=== PATIENT | male | born 1960 | race Caucasian/White ===

== ENCOUNTER → 2018-02-28 | Outpatient (CLI) | payer BC ==
[~2018-02-28] MED LIST: CIPROFLOXACIN500 M1 PO; IBUPROFEN 400400 M1 PO; LEVOTHYROXINE PO; LORTAB 5 MG/5001 TAB PO; NAPROSYN500 MG PO; NOHOMEMEDICATIONS; NORCO 5-325 TA1 EACH PO
== END ==
LOC: M.RAD 15:53
DX: M51.34 Other intervertebral disc degeneration, thoracic region (principal); M51.35 Other intervertebral disc degeneration, thoracolumbar region; M54.41 Lumbago with sciatica, right side; M54.42 Lumbago with sciatica, left side

== ENCOUNTER → 2018-03-14 | Outpatient (CLI) | payer OTHER | LOC: M.MRI 03-07 10:33 | DX: M51.34 Other intervertebral disc degeneration, thoracic region (principal) ==

== ENCOUNTER → 2018-04-07 | Outpatient (CLI) | payer OTHER | LOC: M.ULTRA 15:49 | DX: N28.1 Cyst of kidney, acquired (principal); N40.0 Benign prostatic hyperplasia without lower urinary tract symptoms; N28.9 Disorder of kidney and ureter, unspecified ==

== ENCOUNTER → 2019-03-12 | Outpatient (CLI) | payer BC | LOC: M.ULTRA 14:30 | DX: E04.1 Nontoxic single thyroid nodule (principal); E03.9 Hypothyroidism, unspecified ==

== ENCOUNTER → 2019-03-28 | Outpatient (CLI) | payer BC ==
--- NOTE | 2019-04-18 10:07 | PATH ---
[address] [address] PATHOLOGY RPT PROCEDURE Name: AUGUSTINE ROBERSON Room: [facility]#: [id number] Admission: 03/28/19 Date of : 58 Discharge: Report #: [id number] Path Case #: [id number] Note [facility] Accession Number: [id number] TESTS RESULT FLAG UNITS REF RANGE LAB Source: [A] 01 RT THYROID DIAGNOSIS: [A] 02 RT THYROID, IMAGE-GUIDED FINE NEEDLE ASPIRATION [place] CATEGORY III, ATYPIA OF UNDETERMINED SIGNIFICANCE FOLLICULAR CELLS WITH CYTOLOGIC/NUCLEAR ABNORMALITIES WITH SCANT COLLOID PRESENT. THIS INTERPRETATION INCLUDES EVALUATION OF A CELL BLOCK. (SEE COMMENT) (JENNIFER:mml; 03/29/2019) COMMENT: Specimen will be submitted for retain RNA molecular studies and will be the subject of a separate report. (JENNIFER:mml; 03/29/2019) Pathologist ICD10: 02 R89.6 Addendum: 02 Special studies report received from [facility], [address] [place] [address], on case [id number], labeled with their number [id number], dated 04/16/2019. . RESULTS SUMMARY Nodule Cytopathology ThyGeNEXT ThyraMIR Right Thyroid FNA AUS/FLUS (B-III) No mutations Negative Detected . INTERPRETATION AND RISK ASSESSMENT Right Thyroid FNA Cytology Dx B-III ThyGeNEXT No Mutations Detected ThyraMIR Negative 5% Risk of Malignancy . *Risk assessment is based on disease prevalence of associated cytology diagnosis, mutational changes, microRNA expression, clinical experience, submitted manuscript and associated rocket engine component mechanic/platform presentation "The Utility of Combined Mutations and microRNA Expression Profiling in Assessing Cancer Risk in Thyroid Nodules", [employer] Annual Meeting, February 2017 in addition to clinical validation(1)(See Test Result Interpretation section) . TEST RESULT INTERPRETATION Right Thyroid FNA . [place]odule [place] [address] PATHOLOGY RPT PROCEDURE Name: AUGUSTINE ROBERSON Room: [facility]#: [id number] Admission: 03/28/19 Date of : 58 Discharge: Report #: [id number] Path Case #: [id number] . Thyroid nodules showing [place] Diagnostic Category III (AUS/FLUS) or [place] Diagnostic Category IV (FN/SFN) with negative ThyGeNEXT and negative ThyraMIR status are highly likely to be benign (91-97% likelihood of being benign) (1,2). Given the likelihood for benign disease, continued surveillance can be a suitable management approach. . Because thyroid nodular disease can contain multifocal areas of heterogeneous pathology, sampling variation may occasionally result in under diagnosis of existing pathology. All decision factors, including ultrasound results, nodule size, and patient history need to be taken into account when determining treatment. . 1. E. Labourier et al, Molecular testing of Mitzy, mRNA and DNA on fine needle aspiration improves the preoperative diagnosis of thyroid nodules with indeterminate cytology, Journal of Clinical Endocrinology and Metabolism, 100(4), November 2014, [id number] 2. Jacqui Dye and Karie Bains, The utility of combined mutation analysis and microRNA classification in reclassifying cancer risk of cytologically indeterminate thyroid nodules, Diagnostic Cytopathology. 2018:1-7 . . REGULATORY The ThyGeNEXT Thyroid Oncogene Panel provides PCR-based enrichment from fine-needle aspiration biopsies of thyroid nodules and next-generation sequencing (NGS) DNA and RNA analysis. The DNA analysis interrogates 10 genes relevant to thyroid carcinoma, including BRAF, TERT, ALK, RET, PTEN, HRAS, KRAS, NRAS, GNAS, PIK3CA, and 38 RNA fusion transcripts including PAX8/PPARgamma, RET/PTC, and various fusion partners of ALK, RET, BRAF, NTRK, and THADA. Duplicate PCR enrichment was performed using custom oligonucleotide primers with analysis on a MiSeq platform ([employer]). The analytical sensitivity of this assay is at least 3% for mutant DNA and at least 5% of RNA translocations in a background of wild-type genomic DNA and RNA, respectively. The reporting range is at least 5% for DNA variants, with the exception that the reporting range for BRAF V600E mutation is at least 3%. For the ThyGeNEXT panel, the overall, clinical sensitivity for this analysis is 63% and the specificity is 84% in cases with indeterminant cytology. . The ThyraMIR Mitzy Building Custodian is a microRNA (Mitzy) based discriminator of benign versus malignant disease using mathematical algorithm of 10 specific microRNAs trained and validated using thyroid nodules with known outcome. For the needle aspirates in preservative solution, this assay requires a minimum of RNA equivalent to that for ThyGenX (1000 relative fluorescent units of housekeeping RNA genes). Discrimination can be affected by admixture with blood and normal RNA sources and has been shown to be operative within the range of admixture typically encountered in sampling of thyroid nodule disease. The combined testing platform of ThyGenX with ThyraMIR has a clinical sensitivity of 89% [place] [address] PATHOLOGY RPT PROCEDURE Name: AUGUSTINE ROBERSON Room: [facility]#: [id number] Admission: 03/28/19 Date of : 58 Discharge: Report #: [id number] Path Case #: [id number] 85% for cases with indeterminate cytology diagnosis. (The Journal of Clinical Endocrinology and Metabolism, Volume 100, Issue 7, 27 November 2014, Pages 7554-4239) Laboratory analytical validation of ThyGeNEXT confirmed 100% agreement (95% CI: 99.5 to 100%) for the 5 genes (BRAF, HRAS, KRAS, NRAS, PIK3CA) and 6 fusions (PAX8-PPARG and RET-PTC) interrogated by ThyGenX. Based on this comparison, the performance of ThyGeNEXT is expected to be similar to ThyGenX; however, ThyGeNEXT will provide additional information on gene alterations strongly associated with aggressive forms of differentiated thyroid cancer and/or poor outcome. . Testing performed on material created for microscopic evaluation (cytology slide smears, cell block, or thin prep), depending on cellularity and extractable nuclei acid, may have similar or slightly lower test performance characteristics to that stated above. . . DISCLAIMER: This test was developed and its performance characteristics determined by [facility]. It has not been cleared or approved by the FDA. The laboratory is regulated under CLI as qualified to perform high-complexity testing and is used for clinical purposes. A negative result does not indicate a benign result. This test detects only the mutations listed above, which account for >80% of thyroid cancers. Other, rare mutations, that may be indicative of cancer may not be detected by this test. In addition, about 30% of thyroid cancers have no known genetic alterations and/or mutations. . Interpreted By Electronically verified by Khushboo Canales MD Pathologist Date: 08:47:55 EST . A complete copy of the report is on file. . Professional and Technical services performed by [facility], [address] [place] [address]. . (JENNIFER:amj 04/16/2019) . AZJ/04/16/2019 Addendum Electronically Signed by Pb Parker MD, Pathologist Signed out by: Pb Parker MD, Pathologist NPI- [id number] Performed by: Beba Cesar, Tieing Machine Operator (ASC) Gross description: 01 16ML, RED, CLOUDY /LCS 05/29/1840 [address] [place] [address] PATHOLOGY RPT PROCEDURE Name: AUGUSTINE ROBERSON Room: [facility]#: [id number] Admission: 03/28/19 Date of : 58 Discharge: Report #: [id number] Path Case #: [id number] FLAG LEGEND: L-Low Normal,H-High Normal,LL-Alert Low,HH-Alert High <-Panic Low,>-Panic High,A-Abnormal,AA-Critical Abnormal Performed at: [address] [place] [address] Josh Chambers MD, [address] [place] [address] [place] [address] Pb Parker MD, Performed at: [address], [place], [place] [address] MD Josh Chambers MD Phone: [phone]
== END | disposition home or self-care (01) ==
LOC: M.ULTRA 08:08
DX: E04.1 Nontoxic single thyroid nodule (principal); R89.6 Abnormal cytological findings in specimens from other organs, systems and tissues; Z98.890 Other specified postprocedural states; Z79.899 Other long term (current) drug therapy

== ENCOUNTER 2019-10-22 17:35 | Emergency (ER) | payer BC ==
[~2019-10-22] VITALS: Ht 188 cm; Wt 111.1 kg
[2019-10-22] MEDS ORDERED: EUTHYROX150 MCG PO (17:46)
[2019-10-22 18:02] LABS: URINE BILIRUBIN NEGATIVE (Negative); URINE BLOOD 2+ (Negative); URINE COLOR YELLOW; URINE GLUCOSE-RANDOM NEGATIVE (Negative); URINE KETONES NEGATIVE (Negative); URINE PROTEIN TRACE (Negative)
[2019-10-22 18:04] LABS: URINE CLARITY SL HAZY; URINE LEUKOCYTES-REFLEX 3+ (Negative); URINE NITRITE-REFLEX POSITIVE (Negative)
[2019-10-22 18:14] LABS: MUCUS None Seen strn/LPF (None Seen); SQUAMOUS 0-3 Few /LPF (0-3)
[2019-10-22 18:16] LABS: BACTERIA-REFLEX >30 Many /HPF (None Seen)
[2019-10-22 18:18] LABS: HEMATOCRIT 44.6 % (42.0-52.0); MCH 30.3 pg (26.0-34.0); MCHC 33.7 g/dL (28.0-37.0); MCV 89.8 fL (80.0-100.0); MPV 9.3 fl. (7.2-11.1); NUCLEATED RBCS 0 /100WBC; PLATELET COUNT* 172 thou/uL (150-400); RBC 4.97 mil/uL (4.50-6.00); RDW-CV 13.1 % (10.5-14.5); WBC 15.1 thou/uL (4.0-11.0)
[2019-10-22 18:19] LABS: CASTS None Seen /LPF (None Seen); CRYSTALS None Seen /LPF (None Seen); TRANSITIONAL EPITHEL CELL 0-3 Few /LPF (None Seen)
[2019-10-22 18:20] LABS: URINE RBC 3-10 Few /HPF (0-2)
[2019-10-22 18:29] LABS: CALCIUM 8.8 mg/dL (8.5-10.1); POTASSIUM 3.7 mmol/L (3.5-5.1)
[2019-10-22 18:34] LABS: ALBUMIN 3.1 g/dL (3.4-5.0); TOTAL BILIRUBIN 1.2 mg/dL (<0.1-1.0); TOTAL PROTEIN 7.6 g/dL (6.4-8.2)
[2019-10-22 18:54] LABS: ABSOLUTE LYMPHOCYTES 0.5 thou/uL (0.8-5.3); ABSOLUTE MONOCYTES 1.1 thou/uL (0.0-1.2); ABSOLUTE NEUTROPHILS 13.6 thou/uL (1.6-8.1)
[2019-10-22 18:55] LABS: PLATELET ESTIMATE ADEQUATE
[2019-10-22] MEDS ORDERED: PHENAZOPYRIDIN200 M2 PO (19:11)
[2019-10-22] MEDS ORDERED: KEFLEX500 M1 PO (19:11)
[2019-10-22 19:40] VITALS: BP 134/89
== END 2019-10-22 19:41 | disposition home or self-care (01) ==
LOC: M.ERS 17:35
PROVIDERS: Physician Assistant
DX: N39.0 Urinary tract infection, site not specified (principal); E03.9 Hypothyroidism, unspecified

== ENCOUNTER 2019-11-17 19:57 | Emergency (ER) | payer BC ==
[~2019-11-17] VITALS: Ht 185.4 cm; Wt 103.4 kg
[~2019-11-17 19:57] MED LIST changes: +EUTHYROX150 MCG PO; +KEFLEX500 M1 PO; +PHENAZOPYRIDIN200 M2 PO
[2019-11-17] MEDS ORDERED: CIPRO500 M1 PO (20:11)
[2019-11-17 20:48] LABS: URINE BILIRUBIN NEGATIVE (Negative); URINE BLOOD 2+ (Negative); URINE CLARITY CLEAR; URINE COLOR YELLOW; URINE GLUCOSE-RANDOM NEGATIVE (Negative); URINE KETONES TRACE (Negative); URINE LEUKOCYTES-REFLEX NEGATIVE (Negative); URINE NITRITE-REFLEX NEGATIVE (Negative); URINE PROTEIN TRACE (Negative); URINE UROBILINOGEN 0.2 E.U./dl (0.2-1.0)
[2019-11-17 20:49] LABS: ABSOLUTE LYMPHOCYTES 1.1 thou/uL (0.8-5.3); ABSOLUTE MONOCYTES 0.9 thou/uL (0.0-1.2); ABSOLUTE NEUTROPHILS 6.6 thou/uL (1.6-8.1); BASOPHILS 0.3 %; EOSINOPHILS 0.6 %; HEMATOCRIT 43.7 % (42.0-52.0); HEMOGLOBIN 15.3 gm/dL (14.0-18.0); LYMPHOCYTES 13.1 %; MCHC 35.1 g/dL (28.0-37.0); MCV 88.3 fL (80.0-100.0); MONOCYTES 10.8 %; MPV 8.8 fl. (7.2-11.1); NUCLEATED RBCS 0 /100WBC; PLATELET COUNT* 285 thou/uL (150-400); POLYS 75.2 %; RBC 4.95 mil/uL (4.50-6.00); RDW-CV 13.1 % (10.5-14.5); WBC 8.8 thou/uL (4.0-11.0)
[2019-11-17 20:55] LABS: CALCIUM 9.2 mg/dL (8.5-10.1)
[2019-11-17 20:57] LABS: HYALINE CASTS 4-10 Moderate /LPF (None Seen); MUCUS 4-6 Moderate strn/LPF (None Seen)
[2019-11-17 20:59] LABS: ALBUMIN 3.6 g/dL (3.4-5.0); TOTAL BILIRUBIN 0.5 mg/dL (<0.1-1.0); TOTAL PROTEIN 8.3 g/dL (6.4-8.2)
[2019-11-17 20:59] LABS: BACTERIA-REFLEX 1-9 Few /HPF (None Seen); CRYSTALS None Seen /LPF (None Seen); SQUAMOUS NONE SEEN /LPF (0-3); URINE WBC-REFLEX 0-5 Rare /HPF (0-5)
[2019-11-17 22:05] VITALS: BP 123/75
== END 2019-11-17 22:05 | disposition home or self-care (01) ==
LOC: M.ERS 19:57
PROVIDERS: Personal Emergency Response Attendant
DX: R33.9 Retention of urine, unspecified (principal); E03.9 Hypothyroidism, unspecified